=== PATIENT | female | born 1985 | race African-American/Black ===

== ENCOUNTER 2021-06-23 11:17 | Emergency (ER) | payer OTHER, MEDICARE, MEDICAID, SELFPAY ==
[2021-06-23 11:19] VITALS: BP 113/72; PULSE 108; RESP 18; TEMP 36.7; O2SAT 94; BMI 28.3
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
[2021-06-23 12:40] VITALS: BP 121/76; PULSE 98; RESP 18; TEMP 36.7; O2SAT 96
== END 2021-06-23 12:40 | disposition home or self-care (01) ==
PROVIDERS: Emergency Provider Emergency Medicine; PCP Family Medicine
DX: S30.0XXA Contusion of lower back and pelvis, initial encounter (principal); V43.62XA Car passenger injured in collision with other type car in traffic accident, initial encounter; Y92.414 Local residential or business street as the place of occurrence of the external cause
CPT/HCPCS: 99282

== ENCOUNTER → 2021-06-27 15:13 | Outpatient (CLI) | payer MEDICARE, MEDICAID, SELFPAY ==
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
== END ==
PROVIDERS: PCP Nurse Practitioner Family; Visit Provider Nurse Practitioner Family
DX: M54.41 Lumbago with sciatica, right side (principal); M25.551 Pain in right hip; V49.50XA Passenger injured in collision with unspecified motor vehicles in traffic accident, initial encounter
CPT/HCPCS: 72110; 73502

== ENCOUNTER 2021-07-22 09:30 | Outpatient (RCR) | payer OTHER, MEDICARE, MEDICAID, SELFPAY ==
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
== END 2021-07-22 09:35 | disposition home or self-care (01) ==
LOC: PT 09:30
PROVIDERS: PCP Nurse Practitioner Family; Visit Provider Nurse Practitioner Family
DX: M54.41 Lumbago with sciatica, right side (principal); M25.551 Pain in right hip
CPT/HCPCS: 97014; 97035; 97110; 97163; G0283

== ENCOUNTER → 2021-07-22 10:10 | Outpatient (CLI) | payer OTHER, SELFPAY ==
--- NOTE | 2021-07-22 10:12 | MR_ITS ---
PROCEDURE: MR LUMBAR SPINE WO CON CLINICAL INDICATION: ACUTE RIGHT SIDED LOW BACK PAIN COMPARISON: No exams were available for comparison TECHNIQUE: Standard multiplanar multiecho sequences are performed without contrast. 3-D MIP and myelographic images are also rendered and reviewed FINDINGS: There is normal alignment. The spinal cord ends at the L1-L2 level. No acute fracture or dislocation. L1-L2: Unremarkable. L2-L3: Mild facet and ligamentum hypertrophic change. L3-L4: Mild facet and ligamentum hypertrophy with small amount of fluid just lateral to the facet joint on the right.. L4-5: Generalized disc desiccation with mild circumferential bulging disc along with facet and ligamentum hypertrophic change with mild bilateral foraminal narrowing. Facet and ligamentum hypertrophy. L5-S1: Bulging disc with small broad-based central disc protrusion very slightly eccentric toward the right. Mild bilateral foraminal narrowing. Mild bilateral lateral recess narrowing. No extruded herniated disc or bony canal stenosis. There is mild lumbar scoliosis convex left. IMPRESSION: 1. Mild multilevel lumbar spondylosis. Please see above for detailed description at each level. 2. L4-5: Generalized disc desiccation with mild circumferential bulging disc along with facet and ligamentum hypertrophic change with mild bilateral foraminal narrowing. Facet and ligamentum hypertrophy. 3. L5-S1: Bulging disc with small broad-based central disc protrusion very slightly eccentric toward the right. Mild bilateral foraminal narrowing. Mild bilateral lateral recess narrowing Dictated by: Rey Tam MD 07/25/2021 09:10 Rey Tam MD in [place] 07/25/2021 09:10
== END ==
PROVIDERS: PCP Nurse Practitioner Family; Visit Provider Nurse Practitioner Family
DX: M54.41 Lumbago with sciatica, right side (principal)
CPT/HCPCS: 72148; 76376

== ENCOUNTER → 2021-08-21 15:06 | Outpatient (CLI) | payer MEDICARE, MEDICAID, SELFPAY | PROVIDERS: PCP Nurse Practitioner Family; Visit Provider Nurse Practitioner Family | DX: U07.1 COVID-19 (principal) | CPT/HCPCS: C9803; U0003; U0005 ==

== ENCOUNTER → 2021-11-15 15:59 | Outpatient (CLI) | payer MEDICARE, MEDICAID, SELFPAY | PROVIDERS: PCP Nurse Practitioner Family; Visit Provider Nurse Practitioner Family | DX: Z13.1 Encounter for screening for diabetes mellitus (principal); Z13.29 Encounter for screening for other suspected endocrine disorder; E55.9 Vitamin D deficiency, unspecified; Z13.220 Encounter for screening for lipoid disorders; Z13.0 Encounter for screening for diseases of the blood and blood-forming organs and certain disorders involving the immune mechanism ==

== ENCOUNTER → 2022-02-03 13:25 | Outpatient (CLI) | payer MEDICARE, MEDICAID, SELFPAY ==
--- NOTE | 2022-02-03 13:30 | US_ITS ---
FINAL REPORT CLINICAL HISTORY: Heavy Bleeding FINDINGS: Transvaginal sonographic images of the pelvis were obtained. The uterus measures 9.8 x 8.8 x 5.1 cm. The endometrium measures 8 mm, which is within normal limits. There are 4 uterine fibroids measuring up to 4.4 cm in greatest dimensions. The right ovary measures 3.2 cm in length and left ovary measures 3.0 cm in length. Normal blood flow seen to the ovaries. Small follicles are present. There is no evidence of free fluid. IMPRESSION: Fibroid uterus. Reviewed, Interpreted and Dictated by Phi Booth III, MD Transcribed by Nicholas Champion Authenticated and [facility]
== END ==
PROVIDERS: PCP Nurse Practitioner Family; Visit Provider Nurse Practitioner Obstetrics & Gynecology
DX: N92.0 Excessive and frequent menstruation with regular cycle (principal)
CPT/HCPCS: 76830

== ENCOUNTER 2022-12-24 14:31 | Emergency (ER) | payer MEDICARE, MEDICAID, SELFPAY ==
[2022-12-24 15:12] VITALS: BP 106/75; PULSE 115; RESP 18; TEMP 37.1; O2SAT 98; BMI 25.0
--- NOTE | 2022-12-24 15:54 | EXP.UTC ---
Discharge Plan Disposition Patient Disposition: Home, Self-Care Condition: Good Prescriptions Prescriptions: New ondansetron 4 mg tablet,disintegrating 4 mg PO Q8H PRN (Reason: nausea and vomiting) Qty: 14 0RF No Action budesonide-formoterol 160-4.5 mcg/actuation HFA aerosol inhaler INHALATION fluticasone propionate 50 mcg/actuation spray,suspension INTRANASAL albuterol sulfate [Ventolin HFA] 90 mcg/actuation HFA aerosol inhaler INHALATION mometasone 0.1 % ointment TOPICAL cyclobenzaprine 5 mg tablet 5 mg PO HS levocetirizine 5 mg tablet 5 mg PO DAILY ketorolac 10 mg tablet 10 mg PO TID PRN (Reason: pain) 5 Days Qty: 20 0RF Spiriva Respimat 1.25 mcg/actuation mist IH Label Comments: INHALE 2 SPRAY(S) BY MOUTH ONCE DAILY fluocinolone and shower cap 0.01 % oil TP spironolactone 100 mg tablet 100 mg PO DAILY tretinoin 0.025 % cream TP norgestimate-ethinyl estradiol [Sprintec (28)] 0.25-35 mg-mcg tablet 1 tab PO DAILY Qty: 28 11RF Referrals Follow up/Referrals: Amy Saez APRN [Primary Care Provider] - See instructions Activity Restrictions/Add. Instructions Additional Instructions/Restrictions: Monitor temperature. Seek treatment if fever develops. Follow-up immediately if new or worse symptoms worsen or no noticeable improvement over 48 hours. Increase fluids such as water, Gatorade, Powerade, juice or Pedialyte with limited formula/dietary in children No food is okay as long as you are drinking. Once ready to eat start bland such as bananas, rice, applesauce, toast. Contagious until no diarrhea, vomiting, fever times 48 hours without medication Avoid antidiarrheals unless told otherwise. Best to let the virus run its course. Follow-up immediately for new or worsening symptoms or no noticeable improvement over the next 48 hours. follow up with pcp on leg pain Clinical Impressions Clinical Impression: Nausea & vomiting, Diarrhea Instructions Patient Instructions: DI for Nausea -- Adult, Nausea and Vomiting-Adult, Diarrhea Discharge ED Provider: Fabienne ([facility])Brennan [facility] [place] HPI General Stated complaint: diarrhea,nausea,headache,weakness Mode of Arrival: Ambulatory Source of Information: Patient Limitations: No Limitations Time Seen by Provider: 12/24/22 15:54 Description of Symptoms (Recalled from Triage Doc. by RN): pt c/o n/v/d x2 d. pt believes she has food poisoning. pt also c/o L oden pain, tenderness, and numbness. pt was seen at [facility] on 12/19 and had a negative xray. HEENT Symptoms (Recalled from RN notes): No Resp Symptoms (Recalled from RN notes): No Skin Symptoms (Recalled from RN notes): No MS Symptoms (Recalled from RN notes): Yes Functional Status (Recalled from RN notes): wnl History of Present Illness Provider Complaint: 37yr old female c/o n/v/d x2 d. pt believes she has food poisoning from [place] in [place] on sun[place] night. pt also c/o L oden pain, tenderness, and numbness for 3-4 months. pt was seen at [facility] on 12/19 and had a negative xray. Related Data Home Medications Medication Instructions Recorded Confirmed albuterol sulfate 90 mcg/actuation inhalation 07/19/21 03/21/22 aerosol inhaler (Ventolin HFA) budesonide-formoterol HFA 160 inhalation 07/19/21 03/21/22 mcg-4.5 mcg/actuation aerosol inhaler cyclobenzaprine 5 mg tablet 5 mg PO HS 07/19/21 03/21/22 fluticasone propionate 50 g intranasal 07/19/21 03/21/22 mcg/actuation nasal spray,suspension levocetirizine 5 mg tablet 5 mg PO DAILY 07/19/21 03/21/22 mometasone 0.1 % topical ointment g topical 07/19/21 03/21/22 fluocinolone 0.01 % scalp oil and each topical 01/24/22 03/21/22 shower cap tiotropium bromide 1.25 g inhalation 01/24/22 03/21/22 mcg/actuation mist for inhalation (Spiriva Respimat) spironolactone 100 mg tablet 100 mg PO DAILY 03/21/22 03/21/22 tretinoin 0.025 % topical cream g topi
[2022-12-24 16:09] VITALS: BP 106/75; PULSE 115; RESP 18; TEMP 37.1
== END 2022-12-24 16:22 | disposition home or self-care (01) ==
PROVIDERS: Emergency Provider Nurse Practitioner Family; PCP Nurse Practitioner Family
DX: R11.2 Nausea with vomiting, unspecified (principal); R19.7 Diarrhea, unspecified; R51.9 Headache, unspecified; M79.662 Pain in left lower leg
CPT/HCPCS: 99204; 99212; 99214; G0463

== ENCOUNTER → 2023-04-04 17:06 | Outpatient (CLI) | payer BC, MEDICARE, MEDICAID, SELFPAY ==
--- NOTE | 2023-04-04 17:10 | MR_ITS ---
PROCEDURE INFORMATION: Exam: MR Cervical Spine Without Contrast Exam date and time: 04/04/2023 5:18 PM Age: 37 years old Clinical indication: Pain; Cervicalgia TECHNIQUE: Imaging protocol: Magnetic resonance imaging of the cervical spine without contrast. COMPARISON: No relevant prior studies available. FINDINGS: Bones/joints: The cervical spine is straightened which may be positional or related to spasm. The vertebral body heights are maintained. The marrow signal is normal. Spinal cord: Normal signal. No cord compression. C2-C3: No significant disc bulge or herniation. No severe spinal canal stenosis. No significant neural foraminal narrowing. C3-C4: No significant disc bulge or herniation. No severe spinal canal stenosis. No significant neural foraminal narrowing. C4-C5: No significant disc bulge or herniation. No severe spinal canal stenosis. No significant neural foraminal narrowing. C5-C6: C5-C6 subtle central focal disc protrusion is present without stenosis. C6-C7: No significant disc bulge or herniation. No severe spinal canal stenosis. No significant neural foraminal narrowing. C7-T1: No significant disc bulge or herniation. No severe spinal canal stenosis. No significant neural foraminal narrowing. Soft tissues: Unremarkable. Vasculature: Expected flow voids in the vertebral arteries. IMPRESSION: Subtle C5-C6 degenerative disc disease. No spinal canal stenosis.
--- NOTE | 2023-04-04 17:10 | MR_ITS ---
PROCEDURE INFORMATION: Exam: MR Head Without Contrast Exam date and time: 04/04/2023 5:18 PM Age: 37 years old Clinical indication: Dizziness; Additional info: Keeps losing balance TECHNIQUE: Imaging protocol: Magnetic resonance imaging of the head without contrast. COMPARISON: No relevant prior studies available. FINDINGS: Brain: No acute infarct. No hemorrhage. Unremarkable white matter for age. No edema. Cerebral ventricles: Normal. No ventriculomegaly. Bones/joints: Unremarkable. Paranasal sinuses: There is moderate mucosal thickening in the [id number]-left maxillary sinus the bilateral ethmoids in the bilateral frontal sinuses with minimal sphenoid sinus mucosal thickening. No air-fluid levels are seen. Mastoid air cells: Normal as visualized. No mastoid effusion. Orbital cavities: Unremarkable. Soft tissues: Unremarkable. IMPRESSION: 1. No acute intracranial abnormality. 2. Moderate paranasal sinus opacification without air-fluid level seen to indicate acute sinusitis. Correlate clinically.
== END ==
PROVIDERS: PCP Nurse Practitioner Family; Visit Provider Nurse Practitioner Family
DX: M54.2 Cervicalgia (principal); M54.12 Radiculopathy, cervical region; R26.89 Other abnormalities of gait and mobility
CPT/HCPCS: 70551; 72141; 76376

== ENCOUNTER → 2023-06-18 16:58 | Outpatient (CLI) | payer BC, MEDICARE, MEDICAID, SELFPAY | PROVIDERS: PCP Nurse Practitioner Family; Visit Provider Nurse Practitioner Family | DX: R05.9 Cough, unspecified (principal); R06.02 Shortness of breath; J02.9 Acute pharyngitis, unspecified; R09.89 Other specified symptoms and signs involving the circulatory and respiratory systems; R09.2 Respiratory arrest | CPT/HCPCS: 87635 ==

== ENCOUNTER 2023-12-27 09:20 | Outpatient (CLI) | payer MEDICARE, MEDICAID, SELFPAY ==
[2023-12-25 08:26] LABS: Alpha-1-Antitrypsin 150 mg/dL (100-188)
== END 2023-12-27 23:59 | disposition home or self-care (01) ==
LOC: LAB 09:21
PROVIDERS: PCP Nurse Practitioner Family; Visit Provider Nurse Practitioner Family
DX: J45.51 Severe persistent asthma with (acute) exacerbation (principal)
CPT/HCPCS: 82103

== ENCOUNTER 2024-01-03 16:34 | Outpatient (CLI) | payer MEDICARE, MEDICAID, SELFPAY ==
--- NOTE | 2024-01-03 16:38 | XR_ITS ---
PROCEDURE INFORMATION: Exam: XR Right Knee Exam date and time: 01/03/2024 4:43 PM Age: 38 years old Clinical indication: Other: Pain and swelling; Additional info: Right knee pain and swelling TECHNIQUE: Imaging protocol: Radiologic exam of the right knee. Views: 4 or more views. COMPARISON: No relevant prior studies available. FINDINGS: Bones/joints: Normal. Soft tissues: Normal. IMPRESSION: No acute findings.
== END 2024-01-03 23:59 | disposition home or self-care (01) ==
LOC: RAD 16:35
PROVIDERS: PCP Nurse Practitioner Family; Visit Provider Nurse Practitioner Family
DX: M23.51 Chronic instability of knee, right knee (principal); M25.461 Effusion, right knee
CPT/HCPCS: 73564

== ENCOUNTER 2024-01-18 06:57 | Outpatient (CLI) | payer MEDICARE, MEDICAID, SELFPAY ==
--- NOTE | 2024-01-18 07:32 | MR_ITS ---
FINAL REPORT TECHNIQUE: Multiplanar MR without contrast CLINICAL HISTORY: Right knee pain and swelling FINDINGS: Articular cartilage: No focal defect Marrow signal: Unremarkable Joint fluid: Physiologic Menisci: Normal morphology without tear Ligaments: Collateral and cruciate ligaments intact IMPRESSION: Unremarkable exam Reviewed, Interpreted and Dictated by Haile Nunez MD Transcribed by Chaparrita Jones Authenticated and [facility]
== END 2024-01-18 23:59 | disposition home or self-care (01) ==
LOC: RAD 06:58
PROVIDERS: PCP Nurse Practitioner Family; Visit Provider Nurse Practitioner Family
DX: M25.461 Effusion, right knee (principal); M23.51 Chronic instability of knee, right knee
CPT/HCPCS: 73721

== ENCOUNTER 2024-04-09 12:02 | Outpatient (CLI) | payer MEDICARE, MEDICAID, SELFPAY ==
[2024-04-09 17:43] LABS: Coronavirus 19, PCR Not Detected (NotDetected); Influenza A, PCR Not Detected (NotDetected); Influenza B, PCR Not Detected (NotDetected)
== END 2024-04-09 23:59 | disposition home or self-care (01) ==
LOC: LAB.DROPOF 04-10 12:03
PROVIDERS: PCP Nurse Practitioner Family; Visit Provider Nurse Practitioner Family
DX: R06.02 Shortness of breath (principal)
CPT/HCPCS: 87636

== ENCOUNTER 2024-09-12 16:38 | Outpatient (CLI) | payer MEDICARE, MEDICAID, SELFPAY ==
[2024-09-12 17:14] LABS: Basophils # 0.1 K/mm3 (0-0.2); Basophils % 0.9 % (0.1-2.0); Eosinophils % 11.9 % (0.1-12.0); Hematocrit 42.2 % (37.0-47.0); Hemoglobin 14.1 g/dL (12.2-16.2); Lymphocytes # 3.4 K/mm3 (0.7-4.5); Lymphocytes % 38.5 % (10-50); Mean Corpuscular HGB Conc 33.4 g/dL (31.8-35.4); Mean Corpuscular Hemoglobin 30.2 pg (27.0-31.2); Mean Corpuscular Volume 90.4 fl (81-99); Mean Platelet Volume 9.8 fl (7.4-10.4); Monocytes # 0.4 K/mm3 (0.1-1.0); Monocytes % 4.9 % (1.7-9.3); Neutrophils # 3.8 K/mm3 (1.8-7.8); Neutrophils % 43.7 % (37.0-80.0); Platelet Count 351 K/mm3 (142-424); Red Blood Count 4.67 M/mm3 (4.20-5.40); Red Cell Distribution Width 13.9 % (11.5-17.5); White Blood Count 8.7 K/mm3 (4.8-10.8)
[2024-09-12 18:17] LABS: Alanine Aminotransferase 16 U/L (12-78); Albumin Level 4.5 g/dl (3.5-5.0); Albumin/Globulin Ratio 1.7 (1.1-1.8); Alkaline Phosphatase 61 U/L (38-126); Anion Gap 11.3 mEq/L (5-15); Aspartate Amino Transferase 28 U/L (14-36); Bilirubin,Total 0.4 mg/dl (0.2-1.3); Blood Urea Nitrogen 9 mg/dl (7-17); Calcium 9.6 mg/dl (8.4-10.2); Carbon Dioxide 23 mmol/L (22.0-30.0); Chloride 105 mmol/L (98-107); Chol/HDL Ratio 1.6 (1-3.5); Cholesterol 174 mg/dl (140-200); Estimated Glomerular Filt Rate 112 ml/min (>60); GFR (African American) 135 ML/MIN (>60); Globulin 2.7 g/dL (1.3-3.2); Glucose 76 mg/dl (74-100); HDL Cholesterol 107 mg/dl (40-60); Potassium 4.3 mmoL/L (3.5-5.1); Sodium 135 mmol/L (136-145); Total Protein,Serum 7.2 g/dl (6.3-8.2); Triglycerides 53 mg/dl (30-150); VLDL Cholesterol 11 mg/dL (0-40)
[2024-09-12 18:50] LABS: Thyroid Stimulating Hormone 0.03 uIU/mL (0.465-4.68)
[2024-09-12 19:09] LABS: Vitamin B12 649 pg/mL (239-931)
[2024-09-12 20:23] LABS: Ferritin 12.4 ng/ml (6.24-137)
[2024-09-15 17:34] LABS: Free T4 (Free Thyroxine) 0.91 ng/dl (0.78-2.19)
[2024-09-15 17:35] LABS: T4 (Thyroxine) 8.2 ug/dl (5.53-11.0)
[2024-09-16 08:13] LABS: Thyroid Peroxidase Antibodies 17 IU/mL (0-34); Triiodothyronine (T3) Free 2.8 pg/mL (2.0-4.4)
[2024-09-17 09:22] LABS: Thyroglobulin Level <1.0 IU/mL (0.0-0.9)
== END 2024-09-12 23:59 | disposition home or self-care (01) ==
LOC: LAB 16:39
PROVIDERS: PCP Nurse Practitioner Family; Visit Provider Nurse Practitioner Family
DX: R53.83 Other fatigue (principal); Z13.220 Encounter for screening for lipoid disorders; R79.89 Other specified abnormal findings of blood chemistry; J45.51 Severe persistent asthma with (acute) exacerbation; Z79.899 Other long term (current) drug therapy; R94.6 Abnormal results of thyroid function studies
CPT/HCPCS: 36415; 80053; 80061; 82306; 82607; 82728; 83036; 84436; 84439; 84443; 84481; 85025; 86376; 86800

== ENCOUNTER 2024-10-17 14:05 | Outpatient (CLI) | payer MEDICARE, MEDICAID, SELFPAY ==
[2024-10-17 13:56] LABS: Coronavirus 19, PCR Not Detected (NotDetected); Human Rhinovirus Not Detected (NotDetected); Influenza A, PCR Not Detected (NotDetected); Influenza B, PCR Not Detected (NotDetected); Respiratory Syncytial Virus Not Detected (NotDetected)
[2024-10-17 14:16] LABS: Basophils # 0.1 K/mm3 (0-0.2); Basophils % 1.4 % (0.1-2.0); Eosinophils # 1.5 K/mm3 (0.0-0.4); Eosinophils % 23.8 % (0.1-12.0); Hematocrit 41.3 % (37.0-47.0); Hemoglobin 13.5 g/dL (12.2-16.2); Lymphocytes # 2.3 K/mm3 (0.7-4.5); Lymphocytes % 35.6 % (10-50); Mean Corpuscular HGB Conc 32.7 g/dL (31.8-35.4); Mean Corpuscular Hemoglobin 30.3 pg (27.0-31.2); Mean Corpuscular Volume 92.6 fl (81-99); Mean Platelet Volume 9.9 fl (7.4-10.4); Monocytes # 0.4 K/mm3 (0.1-1.0); Monocytes % 6.3 % (1.7-9.3); Neutrophils # 2.1 K/mm3 (1.8-7.8); Neutrophils % 32.7 % (37.0-80.0); Platelet Count 379 K/mm3 (142-424); Red Blood Count 4.46 M/mm3 (4.20-5.40); Red Cell Distribution Width 14.5 % (11.5-17.5); White Blood Count 6.4 K/mm3 (4.8-10.8)
[2024-10-17 17:06] LABS: Ferritin 22.7 ng/ml (6.24-137)
== END 2024-10-17 23:59 | disposition home or self-care (01) ==
LOC: LAB.DROPOF 14:05
PROVIDERS: PCP Nurse Practitioner Family; Visit Provider Nurse Practitioner Family
DX: R05.1 Acute cough (principal); J01.00 Acute maxillary sinusitis, unspecified; J45.50 Severe persistent asthma, uncomplicated; D50.9 Iron deficiency anemia, unspecified
CPT/HCPCS: 82728; 85025; 87631

== ENCOUNTER 2024-12-05 08:30 | Outpatient (CLI) | payer MEDICARE, MEDICAID, SELFPAY ==
--- NOTE | 2024-12-05 08:30 | MR_ITS ---
FINAL REPORT CLINICAL HISTORY: Dizziness, headaches, blurred vision left eye COMPARISON: None FINDINGS: Multiple projection images of the brain arterial vasculature were obtained without contrast. Raw data images were also reviewed. The internal carotid arteries are patent. The middle cerebral arteries and visualized proximal branches are patent. There is mild irregularity of distal MCA branches bilaterally, that likely represent artifact secondary to motion. The anterior cerebral arteries are patent. The intracranial vertebral arteries are patent. The basilar artery is patent. The posterior cerebral arteries are patent. IMPRESSION: No major vessel occlusion. Mild irregularity of the distal MCA branches bilaterally, that likely represents artifact secondary to motion. Reviewed, Interpreted and Dictated by Slade Tovar MD Transcribed by Cara Capellan Authenticated and [facility]
--- OUTSIDE RECORDS SUMMARY | 2024-12-05 08:32 | XMS_ITS | Clinical Summary ---
Author Organization [facility] Address [address] [place] [address] Phone Care Team Providers Care Mechatronics Technologist Name Role Phone Elana Saez Unavailable [phone] Philip ODOM, Frank Unavailable Unavailable Reason for Visit and Chief Complaint The Chief Complaint is: lower back pain Problems Includes: Problems addressed during this encounter and other active Problems Current Visit Onset Date Resolved Date Provider Kyleo n Status Lower Back Pain 09/13/2021 LINDY LIVINGSTON PA-C Active Last Documented On 2 2:22PM ; [facility] Past Visits Onset Date Resolved Date Provider Condition Status Neck Pain 05/17/2023 Jamaal Osorio MD Active Last Documented On 3 10:29AM ; [facility] Plan of Treatment At this point we will just have her do some chiropractic or physical therapy treatments for a while. Follow-up in a few months see how she responds. She is not bad enough to pursue any surgical treatment at this time. We will just have to reevaluate over time see how she does. - Last Documented On 02/07/2022 3:24PM ; [facility] Instructions to patient Lose weight Last Documented On 2 3:06PM ; [facility] Assessments Includes: Assessments from this encounter Findings Lumbar disc degeneration L4-5 L5-S1 with facet arthropathy. - Last Documented On 02/07/2022 3:24PM ; [facility] Sacroiliitis - Last Documented On 02/07/2022 3:24PM ; [facility] Instructions Includes: Instructions from this encounter Instructions to patient Lose weight Last Documented On 2 3:06PM ; [facility], [facility] Medical Equipment - Implanted Devices Includes: Current Devices No Medical Equipment Recorded Medications Includes: Medications discussed during this encounter and other current Medications Current Medications (continue as prescribed) Pregabalin 50 MG Oral Capsule 05/09/2023 Provider: DORIS SAEZ Diagnosis: Last Documented On 3 11:41AM By Fatou King ; [facility] traMADol HCl 50 MG Oral Tablet 04/27/2023 Provider: DORIS SAEZ Diagnosis: Last Documented On 3 11:41AM By Fatou King ; [facility], [facility] Doxycycline Hyclate 100 MG Oral Capsule 04/25/2023 P rovider: DORIS SAEZ Diagnosis: Last Documented On 3 11:41AM By Fatou King ; [facility] Symbicort 160-4.5 MCG/ACT Inhalation Aerosol 3 Provider: Kandi Busch NP Diagnosis: Last Documented On 3 11:40AM By Fatou King ; [facility] Albuterol Sulfate HFA 108 (9 0 Base) MCG/ACT Inhalation Aerosol Solution 04/06/2023 Provider: Diagnosis: Last Documented On 3 11:41AM By Fatou King ; [facility], [facility] Cyclobenzaprine HCl 10 MG Oral Tablet 03/13/2023 Pro vider: DORIS SAEZ Diagnosis: Last Documented On 3 11:41AM By Fatou King ; [facility], [facility] Medications Administered Includes: Administered Medications from this encounter No Administered Medications Recorded Vital Signs Includes: Vital Signs from this encounter Vital Name 02/07/2022 03:10P Blood Pressure Sitting (mmHg) 137/83 Pulse Rate-Sitting (bpm) 94 Height (in) 64 Weight (lb) 154.2 Body Mass Index (kg/m2) 26.5 Body Surface Area (m2) 1.8 Note: rd Last Documented: On 02/07/2022 3:11PM ; [facility], [facility] Results Includes: Results discussed during this encounter No Results Recorded For Specified Dates History of Present Illness Includes: History of Present Illness from this encounter JIMBO Davenport is a 36 year old female. - Allergy list reviewed - Problem list reviewed - Medication reconciliation performed - Medication list reviewed - Yes, previous treatment. - History of Injections 09/20/2021-[facility] SI joint inj 11/25/2021 Bilat L4-5 L5-S1 Facet MBB Patient returns for follow-up on her lower back pain. Patient elected not to do the epidural injection as the steroid injections that she is already head has caused her some issues with her menstrual cycle. Patient still dealing with pain across the lumbosacral area and in the SI regions. Facet medial branch blocks did not do anything for. She did get some benefit out of the SI injections. But not significantly. She was found to have a disc degeneration with disc bulging at the L4-5 and 5 1. Epidural injection was offered. She elected not to pursue. Social History Description Last Updated Not a current smoker. 05/17/2023 Last Documented On 2 3:06PM ; [facility] Not using alcohol 05/17/2023 Last Documented On 2 3:06PM ; [facility] Not using drugs 05/17/2023 Last Documented On 2 3:06PM ; [facility] Recent change in diet No pork 05/17/2023 Last Documented On 2 3:06PM ; [facility] No caffeine use 10/04/2021 Last Documented On 2 3:06PM ; [facility] Non-smoker 09/13/2021 Last Documented On 2 3:06PM ; [facility] Not exercising regularly 09/13/2021 Last Documented On 2 3:06PM ; [facility] Smoking Status Unknown Procedures and Surgical History Includes: Procedures from this encounter Procedures Code Diagnosis Performing Provider Service L ocation Service Date use of tobacco assessment performed 1000F Last Documented On 2 3:06PM ; [facility] no influenza immunization contraindicate d Last Documented On 2 3:11PM ; [facility] an X-ray was performed [id number] Last Documented On 2 3:07PM ; [facility] an MRI was performed 07/2021 [id number] Last Documented On 2 3:07PM ; [facility] Medical History Includes: Medical History addressed during this encounter Description Last Updated No recent immunization for flu 2 Last Documented On 2 3:06PM ; [facility] No recent immunization for pneumococcal pneumonia 10/04/2021 Last Documented On 2 3:06PM ; [facility] History of Anemia 09/13/2021 Last Documented On 2 3:06PM ; [facility] History of asthma 09/13/2021 Last Documented On 2 3:06PM ; [facility] Past Surgical History: Tubal 09/13/2021 Last Documented On 2 3:06PM ; [facility] Family History Includes: Family History addressed during this encounter Description Last Updated Diabetes mellitus 09/13/2021 Last Documented On 2 3:06PM ; [facility] Family history of cancer 09/13/2021 Last Documented On 2 3:06PM ; [facility] Stroke / Seizures 09/13/2021 Last Documented On 2 3:06PM ; [facility] Review of Systems Includes: Review of Systems from this encounter Systemic: Not feeling tired, no recent weight loss, and no recent weight gain. Head: No headache. Sinus pain. Eyes: No vision problems and no Cataracts. Glasses/Contacts. No Glaucoma. Otolaryngeal: No hearing loss and no tinnitus. Cardiovascular: No chest pain or discomfort, no palpitations, no Hypertension, and no High Cholesterol. Pulmonary: Daytime asthma symptoms. No chronic cough. No wheezing. Gastrointestinal: Heartburn. No abdominal pain. No Indigestion, no Acid Reflux, no Peptic Ulcer, no GI Stomach Bleed, and no Ulcers. Endocrine: No hot flashes, no muscle weakness, no Diabetes, no Hypothyroid, and no Hyperthyroid. Hematologic: No easy bleeding. A tendency for easy bruising and Anemia. Musculoskeletal: No Arthritis. Lower back pain. No soft tissue swelling and no localized joint pain. Neurological: No dizziness, no convulsions, and no numbness. Psychological: No anxiety, no emotional lability, no depression, and no insomnia. Not crying for no reason. Skin: No dry skin. No Ulcers and no Scars. Rash: Allergic and Immunologic: Complaint of seasonal allergic reaction. reviewed 02/07/2022 Mental Status Includes: Mental Status from this encounter Description No anxiety Functional Status Includes: Functional Status from this encounter No Functional Status Recorded Physical Exam Includes: Physical Exam from this encounter Allergies Includes: Active Allergies Substance Type Reaction Onset Date Resolved Date Statu s Amoxicillin Allergy 09/13/2021 Active Last Documented On 3 10:29AM ; [facility] Encounters Encounter Provider Location Date Check-In Time Check- Out Time Diagnosis Follow Up LINDY LIVINGSTON PA-C [facility] 2 2:55PM 3:23PM Insurance Includes: Active Insurance Policies Plan Name Member ID Group # Subscriber Relationship Effect gustavo Dates 1 - [facility] [id number] Renee Gross Self 08/20/2022 - Unknown Clinical Notes Includes: Clinical Notes from this encounter No Clinical Notes Recorded
--- OUTSIDE RECORDS SUMMARY | 2024-12-05 08:32 | XMS_ITS | Clinical Summary ---
Author Organization [facility] , [facility] Address [address] [place] [address] Phone Care Team Providers Care Flavoring Oil Filterer Name Role Phone Elana Saez Unavailable [phone] Philip ODOM, Frank Unavailable Unavailable Reason for Visit and Chief Complaint The Chief Complaint is: neck pain Problems Includes: Problems addressed during this encounter and other active Problems Current Visit Onset Date Resolved Date Provider Elijah siegel Status Neck Pain 05/17/2023 Jamaal Osorio MD Active Last Documented On 3 10:29AM ; [facility] Lower Back Pain 09/13/2021 LINDY LIVINGSTON PA-C Active Last Documented On 2 2:22PM ; [facility] Plan of Treatment Patient was seen by myself and Dr. Devon Rojas PA-C. Patient will follow up with us as needed were to refer her to neurology for a more formal neurology work-up do not feel this is anything that needs neck surgery at this point in time. We do encourage her to continue work on exercises for posture and gave her a brochure with those exercises - Last Documented On 11/02/2023 12:38PM ; [facility] Referrals To Diagnosis Consult with Neurologist Note: Refer to Neurology Last Documented On 4 10:04AM ; [facility] Assessments Includes: Assessments from this encounter Findings Neck pain and left arm radiculopathy - Last Documented On 11/02/2023 12:38PM ; [facility], [facility] Medical Equipment - Implanted Devices Includes: Current Devices No Medical Equipment Recorded Medications Includes: Medications discussed during this encounter and other current Medications Discontinued / Stopped on this date on 01/24/2022 Sprintec 28 0.25-35 MG-MCG Oral Tablet Pr ovider: Diagnosis: Last Documented On 3 11:38AM By Fatou King ; [facility], [facility] Benzoyl Peroxide 10% External Foam Provid er: Diagnosis: Last Documented On 3 11:38AM By Fatou King ; [facility], [facility] Symbicort 160-4.5 MCG/ACT Inhalation Aerosol Provider: Diagnosis: Last Documented On 3 11:38AM By Fatou King ; [facility], [facility] Fluticasone Propionate 50 MCG/ACT Nasal Suspension Provider: Diagnosis: Last Documented On 3 11:38AM By Fatou King ; [facility], [facility] Ventolin HFA 108 (90 Base) MCG/ACT Inhalation Aerosol Solution Provider: Diagnosis: Last Documented On 3 11:37AM By Fatou King ; [facility], [facility] DermaZinc Scalp External Liquid Provider: Diagnosis: Last Documented On 3 11:38AM By Fatou King ; [facility], [facility] Ketoconazole 2% External Shampoo Provider : Diagnosis: Last Documented On 3 11:38AM By Fatou King ; [facility], [facility] Clindamycin Phosphate 1% External Gel Pro vider: Diagnosis: Last Documented On 3 11:38AM By Fatou King ; [facility], [facility] LidoPure Patch 5% External Kit Provider: Diagnosis: Last Documented On 3 11:38AM By Fatou King ; [facility], [facility] Tretinoin 0.025% External Gel Provider: Diagnosis: Last Documented On 3 11:38AM By Fatou King ; [facility], [facility] Budesonide-Formoterol Fumara te 160-4.5 MCG/ACT Inhalation Aerosol Provider: DORIS SAEZ Diagnosis: Last Documented On 3 11:37AM By Fatou Kign ; [facility], [facility] Spiriva Respimat 1.25 MCG/AC T Inhalation Aerosol Solution Provider: DORIS SAEZ Diagnosis: Last Documented On 3 11:37AM By Fatou King ; [facility], [facility] Current Medications (continue as prescribed) Pregabalin 50 MG Oral Capsule 05/09/2023 Provider: DORIS SAEZ Diagnosis: Last Documented On 3 11:41AM By Fatou King ; [facility], [facility] traMADol HCl 50 MG Oral Tablet 04/27/2023 Provider: DORIS SAEZ Diagnosis: Last Documented On 3 11:41AM By Fatou King ; [facility], [facility] Doxycycline Hyclate 100 MG Oral Capsule 04/25/2023 P rovider: DORISCELINE SAEZ Diagnosis: Last Documented On 3 11:41AM By Fatou King ; [facility], [facility] Symbicort 160-4.5 MCG/ACT Inhalation Aerosol 3 Provider: Kandi Busch NP Diagnosis: Last Documented On 3 11:40AM By Fatou King ; [facility], [facility] Albuterol Sulfate HFA 108 (9 0 Base) MCG/ACT Inhalation Aerosol Solution 04/06/2023 Provider: Diagnosis: Last Documented On 3 11:41AM By Fatou King ; [facility], [facility] Cyclobenzaprine HCl 10 MG Oral Tablet 03/13/2023 Pro vider: DORIS LAWRENCENER Diagnosis: Last Documented On 3 11:41AM By Fatou King ; [facility], [facility] Medications Administered Includes: Administered Medications from this encounter No Administered Medications Recorded Vital Signs Includes: Vital Signs from this encounter Vital Name 05/17/2023 10:37A Height (in) 64 Weight (lb) 136 Body Mass Index 23.3 Body Surface Area 1.7 Note: lc Last Documented: On 05/17/2023 10:37A M ; [facility], [facility] Results Includes: Results discussed during this encounter No Results Recorded For Specified Dates History of Present Illness Includes: History of Present Illness from this encounter JIMBO Davenport is a 37 year old female. - Symptoms Popping and grinding Hot and cold pack makes symptos better. Sitting and standing for more than 15 minutes makes symptoms worse. - Allergy list reviewed - Problem list reviewed - Medication list reviewed - Previous history of new onset pain 06/2021 Automotive Injury - Sharp pain Symptoms - Stabbing - Pain is constant (100% of the time) - Pain is throbbing - Pain is dull, aching - Patient pain level from 1-10: 9 - Yes, previous treatment. PCP - History of Physical Therapy - History of Injections Medications used for this condition: Patient is here today complaints of neck pain and left arm pain that radiates down the left arm makes her whole arm go numb she has been dealing with this for 3 months she is done physical therapy with it which has not helped. She has a job where she has to do a lot of looking down a lot. She is also has a left eye problem which she states she sees a retinal specialist with it which they said could possibly cause her to go blind. She describes no balance problems no bowel or bladder issues with this. She has also had a brain MRI. Social History Description Last Updated Tobacco non-user 05/17/2023 Last Documented On 4 12:38PM ; [facility], [facility] Not a current smoker. 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 Last Documented On 4 12:38PM ; [facility] No caffeine use 10/04/2021 Last Documented On 3 10:29AM ; [facility], [facility] Not exercising regularly 09/13/2021 Last Documented On 3 10:29AM ; [facility], [facility] Smoking Status Unknown Procedures and Surgical History Includes: Procedures from this encounter Procedures Code Diagnosis Performing Provider Service L ocation Service Date use of tobacco assessment performed 1000F Last Documented On 3 10:29AM ; [facility], [facility] review of medications documented 1160F Last Documented On 3 10:29AM ; [facility], [facility] an X-ray was performed 06/27/2021-[facility] @ [facility] [id number] Last Documented On 3 10:34AM ; [facility] an MRI was performed 07/22/2021-[facility] @ [facility] [id number] Last Documented On 3 10:34AM ; [facility] Surgical History Last Updated Past Surgical History: Tubal 2007 2022 Last Documented On 4 12:38PM ; [facility] Medical History Includes: Medical History addressed during this encounter Description Last Updated No recent immunization for flu 2 Last Documented On 3 10:29AM ; [facility] No recent immunization for pneumococcal pneumonia 10/04/2021 Last Documented On 3 10:29AM ; [facility] History of Anemia 09/13/2021 Last Documented On 3 10:29AM ; [facility] History of asthma 09/13/2021 Last Documented On 3 10:29AM ; [facility] Family History Includes: Family History addressed during this encounter Description Last Updated Family history of heart disease 05/17/20 Last Documented On 4 12:38PM ; [facility] Family history of rheumatoid arthritis 0 05/17/2023 Last Documented On 4 12:38PM ; [facility] Family history of thromboembolic disease 05/17/2023 Last Documented On 4 12:38PM ; [facility] Diabetes mellitus 09/13/2021 Last Documented On 3 10:29AM ; [facility] Family history of cancer 09/13/2021 Last Documented On 3 10:29AM ; [facility] Stroke / Seizures 09/13/2021 Last Documented On 3 10:29AM ; [facility] Review of Systems Includes: Review of Systems from this encounter Systemic: Not feeling tired, no recent weight loss, and no recent weight gain. Head: No headache. Sinus pain. Eyes: Vision problems. No Cataracts. Glasses/Contacts. No Glaucoma. Otolaryngeal: No hearing loss and no tinnitus. Cardiovascular: No chest pain or discomfort, no palpitations, no Hypertension, and no High Cholesterol. Pulmonary: Daytime asthma symptoms. No chronic cough. No wheezing. Gastrointestinal: No heartburn and no abdominal pain. No Indigestion, no Acid Reflux, no Peptic Ulcer, no GI Stomach Bleed, and no Ulcers. Endocrine: No hot flashes, no muscle weakness, no Diabetes, no Hypothyroid, and no Hyperthyroid. Hematologic: No easy bleeding. A tendency for easy bruising. No Anemia. Musculoskeletal: Arthritis and lower back pain. No soft tissue swelling and no localized joint pain. Neurological: Dizziness. No convulsions. Numbness. Psychological: No anxiety, no emotional lability, no depression, and no insomnia. Not crying for no reason. Skin: No dry skin. No Ulcers, no Scars, and no rash. Allergic and Immunologic: Complaint of seasonal allergic reaction. Mental Status Includes: Mental Status from this encounter Description No anxiety Functional Status Includes: Functional Status from this encounter No Functional Status Recorded Physical Exam Includes: Physical Exam from this encounter Allergies Includes: Active Allergies Substance Type Reaction Onset Date Resolved Date Statu s Amoxicillin Allergy 09/13/2021 Active Last Documented On 3 10:29AM ; [facility] Encounters Encounter Provider Location Date Check-In Time Check-Out Time Diagnosis Non Physician Specified Jamaal Osorio MD [facility] 05/17/20 23 10:26AM 11:15AM Insurance Includes: Active Insurance Policies Plan Name Member ID Group # Subscriber Relationship Effect gustavo Dates 1 - [facility] [id number] Renee Davenport Self 08/20/2022 - Unknown Clinical Notes Includes: Clinical Notes from this encounter * Progress note Date Encounter Last Documented by 05/17/2023 Non Physician Specified Last doc umented on 11/02/2023; 12:38 PM, Jamaal Osorio MD; [facility] Active Problems & Conditions - Lower Back Pain - Neck Pain Chief Complaint The Chief Complaint is: Neck pain. Referred Here Referred by PCP and referred by Primary Care Provider. History of Present Illness Renee Davenport is a 37 year old female. - Symptoms Popping and grinding Hot and cold pack makes symptos better. Sitting and standing for more than 15 minutes makes symptoms worse. - Allergy list reviewed - Problem list reviewed - Medication list reviewed - Previous history of new onset pain 06/2021 Automotive Injury - Sharp pain Symptoms - Stabbing - Pain is constant (100% of the time) - Pain is throbbing - Pain is dull, aching - Patient pain level from 1-10: 9 - Yes, previous treatment. PCP - History of Physical Therapy - History of Injections Medications used for this condition: Patient is here today complaints of neck pain and left arm pain that radiates down the left arm makes her whole arm go numb she has been dealing with this for 3 months she is done physical therapy with it which has not helped. She has a job where she has to do a lot of looking down a lot. She is also has a left eye problem which she states she sees a retinal specialist with it which they said could possibly cause her to go blind. She describes no balance problems no bowel or bladder issues with this. She has also had a brain MRI. Current Medication - Albuterol Sulfate HFA 108 (90 Base) MCG/ACT Inhalation Aerosol Solution Aerosol, solution 17 days, 0 refills - Cyclobenzaprine HCl 10 MG Oral Tablet 30 days, 0 refills - Doxycycline Hyclate 100 MG Oral Capsule Capsule, conventional 10 days, 0 refills - Pregabalin 50 MG Oral Capsule Capsule, conventional 30 days, 0 refills - Symbicort 160-4.5 MCG/ACT Inhalation Aerosol 30 days, 0 refills - traMADol HCl 50 MG Oral Tablet 7 days, 0 refills Past Medical/Surgical History Reported: Immunization History: No recent immunization for flu and not for pneumococcal pneumonia. Diagnoses: Asthma Anemia Surgical: - Past Surgical History: Tubal 2007 Social History Not a current smoker. Current diet: No recent change in diet No pork. Caffeine use: No caffeine use. Tobacco use: Tobacco non-user. Alcohol: Alcohol use. Drug Use: Not using drugs. Habits: Not exercising regularly. Work: Working time buyer. Allergies - Amoxicillin Family History Cancer Heart disease Stroke / Seizures Diabetes mellitus Thromboembolic disease Rheumatoid arthritis Review Of Systems Systemic: Not feeling tired, no recent weight loss, and no recent weight gain. Head: No headache. Sinus pain. Eyes: Vision problems. No Cataracts. Glasses/Contacts. No Glaucoma. Otolaryngeal: No hearing loss and no tinnitus. Cardiovascular: No chest pain or discomfort, no palpitations, no Hypertension, and no High Cholesterol. Pulmonary: Daytime asthma symptoms. No chronic cough. No wheezing. Gastrointestinal: No heartburn and no abdominal pain. No Indigestion, no Acid Reflux, no Peptic Ulcer, no GI Stomach Bleed, and no Ulcers. Endocrine: No hot flashes, no muscle weakness, no Diabetes, no Hypothyroid, and no Hyperthyroid. Hematologic: No easy bleeding. A tendency for easy bruising. No Anemia. Musculoskeletal: Arthritis and lower back pain. No soft tissue swelling and no localized joint pain. Neurological: Dizziness. No convulsions. Numbness. Psychological: No anxiety, no emotional lability, no depression, and no insomnia. Not crying for no reason. Skin: No dry skin. No Ulcers, no Scars, and no rash. Allergic and Immunologic: Complaint of seasonal allergic reaction. Physical Findings - Vitals taken 05/17/2023 10:37 am lc Height 64 in Weight 136 lbs Body Mass Index 23.3 kg/m2 Body Surface Area 1.7 m2 Cervical range of motion was full she had some tenderness to palpation in both bilateral upper trapezius She has 5 out of 5 biceps triceps deltoids wrist extension and flexion strength and no long track findings Tests MRI of the cervical spine showed no disc herniations or stenosis Assessment Neck pain and left arm radiculopathy Previous Tests Imaging: X-Ray: An X-ray was performed 06/27/2021-[facility] @ [facility]. MRI Scan: An MRI was performed 07/22/2021-MRI [facility]Spine @ [facility]. Available previous imaging studies were reviewed Available previous history reviewed Plan StartCited - Other Referral/Neurologist: Consult with Neurologist Instructions: Refer to Neurology EndCited Patient was seen by myself and Dr. Devon Rojas PA-C. Patient will follow up with us as needed were to refer her to neurology for a more formal neurology work-up do not feel this is anything that needs neck surgery at this point in time. We do encourage her to continue work on exercises for posture and gave her a brochure with those exercises Notes This dictation was done with voice recognition software and may contain errors and omissions. Practice Management Use of tobacco assessment performed Review of medications documented. Care Team - Elana Saez Health Reminders - Assess BMI satisfied 05/17/2023. - Assess Tobacco Use satisfied 05/17/2023.
--- OUTSIDE RECORDS SUMMARY | 2024-12-05 08:33 | XMS_ITS ---
Author Organization [facility] , [facility] Address [address] [place] [address] Phone Care Team Providers Care Leather Belt Shaper Name Role Phone Elana Saez Unavailable [phone] Frank Palacios MD Unavailable Unavailable Reason for Referral Date Encounter Description Provider Reason for Referral 09/13/21 Non Physician Specified LINDY Dickson Referral To Physician Problems Includes: Active, inactive, and resolved Problems All Visits Onset Date Resolved Date Provider Condition S tatus Neck Pain 05/17/2023 Jamaal Osorio MD Active Last Documented On 3 10:29AM ; [facility] Lower Back Pain 09/13/2021 LINDY LIVINGSTON PA-C Active Last Documented On 2 2:22PM ; [facility], [facility] Plan of Treatment Referrals To Diagnosis Consult with Neurologist Note: Refer to Neurology Last Documented On 4 10:04AM ; [facility] Instructions to patient No intervention and counseli ng on cessation of tobacco use Last Documented On 2 10:23AM ; [facility] Lose weight Last Documented On 2 10:22AM ; [facility] Lose weight Last Documented On 2 3:06PM ; [facility] Lose weight Last Documented On 2 9:14AM ; [facility] Lose weight Last Documented On 2 11:33AM ; [facility] Lose weight Last Documented On 2 2:23PM ; [facility] Assessments Includes: Assessments for all patient encounters No Assessments Recorded Instructions Includes: Instructions for all patient encounters Instructions to patient No intervention and counseli ng on cessation of tobacco use Last Documented On 2 10:23AM ; [facility] Lose weight Last Documented On 2 10:22AM ; [facility] Lose weight Last Documented On 2 3:06PM ; [facility] Lose weight Last Documented On 2 9:14AM ; [facility] Lose weight Last Documented On 2 11:33AM ; [facility] Lose weight Last Documented On 2 2:23PM ; [facility], [facility] Medical Equipment - Implanted Devices Includes: Current and historical Devices No Medical Equipment Recorded Medications Includes: Current and historical Medications Current Medications (continue as prescribed) Pregabalin 50 MG Oral Capsule 05/09/2023 Provider: DORIS SAEZ Diagnosis: Last Documented On 3 11:41AM By Fatou King ; [facility], [facility] traMADol HCl 50 MG Oral Tablet 04/27/2023 Provider: DORIS SAEZ Diagnosis: Last Documented On 3 11:41AM By Fatou King ; [facility], [facility] Doxycycline Hyclate 100 MG Oral Capsule 04/25/2023 Pili main: DORIS SAEZ Diagnosis: Last Documented On 3 11:41AM By Fatou King ; [facility], [facility] Symbicort 160-4.5 MCG/ACT Inhalation Aerosol 3 Provider: Kandi Busch NP Diagnosis: Last Documented On 3 11:40AM By Fatou King ; [facility], [facility] Albuterol Sulfate HFA 108 (9 0 Base) MCG/ACT Inhalation Aerosol Solution 04/06/2023 Provider: Diagnosis: Last Documented On 3 11:41AM By Fatou King ; [facility], [facility] Cyclobenzaprine HCl 10 MG Oral Tablet 03/13/2023 Pro vider: DORIS SAEZ Diagnosis: Last Documented On 3 11:41AM By Fatou King ; [facility], [facility] Past Medications on file Sprintec 28 0.25-35 MG-MCG Oral Tablet 01/24/2022 - Provider: Diagnosis: Last Documented On 3 11:38AM By Fatou King ; [facility], [facility] Benzoyl Peroxide 10% External Foam 09/13/2021 - 2022 Provider: Diagnosis: Last Documented On 3 11:38AM By Fatou King ; [facility], [facility] Symbicort 160-4.5 MCG/ACT Inhalation Aerosol 2 - 05/17/2023 Provider: Diagnosis: Last Documented On 3 11:38AM By Fatou King ; [facility], [facility] Fluticasone Propionate 50 MC G/ACT Nasal Suspension 09/13/2021 - 05/17/2023 Provider: Diagnosis: Last Documented On 3 11:38AM By Fatou King ; [facility], [facility] Ventolin HFA 108 (90 Base) M CG/ACT Inhalation Aerosol Solution 09/13/2021 - 05/17/2023 Provider: Diagnosis: Last Documented On 3 11:37AM By Fatou King ; [facility], [facility] DermaZinc Scalp External Liquid 09/13/2021 - Provider: Diagnosis: Last Documented On 3 11:38AM By Fatou King ; [facility], [facility] Ketoconazole 2% External Shampoo 09/13/2021 - 05/17/20 23 Provider: Diagnosis: Last Documented On 3 11:38AM By Fatou King ; [facility], [facility] Clindamycin Phosphate 1% External Gel 09/13/2021 - Provider: Diagnosis: Last Documented On 3 11:38AM By Fatou King ; [facility], [facility] LidoPure Patch 5% External Kit 09/13/2021 - 05/17/2023 Provider: Diagnosis: Last Documented On 3 11:38AM By Fatou King ; [facility], [facility] Tretinoin 0.025% External Gel 09/13/2021 - 05/17/2023 Provider: Diagnosis: Last Documented On 3 11:38AM By Fatou King ; [facility], [facility] Budesonide-Formoterol Fumara te 160-4.5 MCG/ACT Inhalation Aerosol 09/06/2021 - 05/17/2023 Provider: Rashawn SAEZ Diagnosis: Last Documented On 3 11:37AM By Fatou King ; [facility], [facility] Spiriva Respimat 1.25 MCG/AC T Inhalation Aerosol Solution 09/05/2021 - 05/17/2023 Provider: DORIS LÓPEZ Diagnosis: Last Documented On 3 11:37AM By Fatou King ; [facility], [facility] Medications Administered Includes: Administered Medications in patient's chart No Administered Medications Recorded Results Includes: Results from 12/06/2023 through 12/05/2024 No Results Recorded For Specified Dates History of Present Illness History of Present Illness not supported for this document type No History of Present Illness Recorded Social History Description Last Updated Tobacco non-user 05/17/2023 Last Documented On 4 12:38PM ; [facility], [facility] Not a current smoker. 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 Last Documented On 4 12:38PM ; [facility] No tobacco use 04/12/2022 Last Documented On 2 10:45AM ; [facility] No caffeine use 10/04/2021 Last Documented On 2 11:47AM ; [facility] Non-smoker 09/13/2021 Last Documented On 2 3:45PM ; [facility] Not exercising regularly 09/13/2021 Last Documented On 2 3:45PM ; [facility], [facility] Smoking Status Unknown Procedures and Surgical History Surgical History Last Updated Past Surgical History: Tubal 2007 2022 Last Documented On 4 12:38PM ; [facility] Medical History Includes: Medical History in patient's chart Description Last Updated No recent immunization for flu 2 Last Documented On 2 11:47AM ; [facility] No recent immunization for pneumococcal pneumonia 10/04/2021 Last Documented On 2 11:47AM ; [facility] History of Anemia 09/13/2021 Last Documented On 2 3:45PM ; [facility] History of asthma 09/13/2021 Last Documented On 2 3:45PM ; [facility], [facility] Past Surgical History: Tubal 09/13/2021 Last Documented On 2 3:45PM ; [facility], [facility] Family History Includes: Family History in patient's chart Description Last Updated Family history of heart disease 05/17/20 23 Last Documented On 4 12:38PM ; [facility] Family history of rheumatoid arthritis 0 05/17/2023 Last Documented On 4 12:38PM ; [facility] Family history of thromboembolic disease 05/17/2023 Last Documented On 4 12:38PM ; [facility] Diabetes mellitus 09/13/2021 Last Documented On 2 3:45PM ; [facility] Family history of cancer 09/13/2021 Last Documented On 2 3:45PM ; [facility] Stroke / Seizures 09/13/2021 Last Documented On 2 3:45PM ; [facility] Review of Systems Review of Systems not supported for this document type No Review of Systems Recorded Mental Status Description No anxiety Functional Status No Functional Status Recorded Physical Exam Physical Exam not supported for this document type No Physical Exam Recorded Allergies Includes: Active, inactive, and resolved Allergies Substance Type Reaction Onset Date Resolved Date Statu s Amoxicillin Allergy 09/13/2021 Active Last Documented On 3 10:29AM ; [facility], [facility] Insurance Includes: Active Insurance Policies Plan Name Member ID Group # Subscriber Relationship Effect gustavo Dates 1 - [facility] [id number] Renee Davenport Self 08/20/2022 - Unknown Clinical Notes Includes: Signed Clinical Notes starting from 08/03/2022 No Clinical Notes Recorded
--- OUTSIDE RECORDS SUMMARY | 2024-12-05 08:33 | XMS_ITS ---
Care Plan - [facility], [facility] Created on: December 05, 2024 Renee Davenport : 1985 Sex: Female Author Organization [facility], [facility] Address [address] [place] [address] Phone Care Team Providers Care Administrative Director Name Role Phone Elana Saez Unavailable [phone] Philip ODOM, Frank Unavailable Unavailable
--- OUTSIDE RECORDS SUMMARY | 2024-12-05 08:33 | XMS_ITS | Clinical Summary ---
Author Organization [facility] , [facility] Address [address] [place] [address] Phone Care Team Providers Care Special Skills Officer Name Role Phone Elana Saez Unavailable [phone] Philip ODOM, Frank Unavailable Unavailable Reason for Visit and Chief Complaint Epidural Steroid Injection Problems Includes: Problems addressed during this encounter and other active Problems All Visits Onset Date Resolved Date Provider Condition S tatus Neck Pain 05/17/2023 Jamaal Osorio MD Active Last Documented On 3 10:29AM ; [facility], [facility] Lower Back Pain 09/13/2021 LINDY LIVINGSTON PA-C Active Last Documented On 2 2:22PM ; [facility], [facility] Plan of Treatment No Plan of Treatment Recorded Assessments Includes: Assessments from this encounter No Assessments Recorded Medical Equipment - Implanted Devices Includes: Current Devices No Medical Equipment Recorded Medications Includes: Medications discussed during this encounter and other current Medications Current Medications (continue as prescribed) Pregabalin 50 MG Oral Capsule 05/09/2023 Provider: DORIS SAEZ Diagnosis: Last Documented On 3 11:41AM By Fatou Knig ; [facility], [facility] traMADol HCl 50 MG Oral Tablet 04/27/2023 Provider: DORIS SAEZ Diagnosis: Last Documented On 3 11:41AM By Fatou King ; [facility], [facility] Doxycycline Hyclate 100 MG Oral Capsule 04/25/2023 Pili segundoder: DORIS SAEZ Diagnosis: Last Documented On 3 11:41AM By Fatou King ; [facility], [facility] Symbicort 160-4.5 MCG/ACT Inhalation Aerosol 3 Provider: Kandi Busch NP Diagnosis: Last Documented On 3 11:40AM By Fatou King ; [facility], [facility] Albuterol Sulfate HFA 108 (9 0 Base) MCG/ACT Inhalation Aerosol Solution 04/06/2023 Provider: Diagnosis: Last Documented On 3 11:41AM By Fatou King ; [facility], [facility] Cyclobenzaprine HCl 10 MG Oral Tablet 03/13/2023 Pro vider: DORIS SAEZ Diagnosis: Last Documented On 3 11:41AM By Fatou King ; [facility], [facility] Medications Administered Includes: Administered Medications from this encounter No Administered Medications Recorded Results Includes: Results discussed during this encounter No Results Recorded For Specified Dates History of Present Illness Includes: History of Present Illness from this encounter No History of Present Illness Recorded Social History No Social History Recorded - Smoking Status Unknown Medical History Includes: Medical History addressed during this encounter No Medical History Recorded Family History Includes: Family History addressed during this encounter No Family History Recorded Review of Systems Includes: Review of Systems from this encounter No Review of Systems Recorded Mental Status Includes: Mental Status from this encounter No Mental Status Recorded Functional Status Includes: Functional Status from this encounter No Functional Status Recorded Physical Exam Includes: Physical Exam from this encounter No Physical Exam Recorded Allergies Includes: Active Allergies Substance Type Reaction Onset Date Resolved Date Statu s Amoxicillin Allergy 09/13/2021 Active Last Documented On 3 10:29AM ; [facility], [facility] Encounters Encounter Provider Location Date Check-In Time Check-Out Time Diagnosis Epidural Steroid Injection Frank Palacios MD 2 11:05AM 11:59PM Insurance Includes: Active Insurance Policies Plan Name Member ID Group # Subscriber Relationship Effect gustavo Dates 1 - [facility] [id number] Renee Gross Self 08/20/2022 - Unknown Clinical Notes Includes: Clinical Notes from this encounter No Clinical Notes Recorded
--- OUTSIDE RECORDS SUMMARY | 2024-12-05 08:33 | XMS_ITS | Clinical Summary ---
Author Organization [facility] , [facility] Address [address] [place] [address] Phone Care Team Providers Care Truck Leasing Manager Name Role Phone Elana Saez Unavailable [phone] Philip ODOM, Frank Unavailable Unavailable Reason for Visit and Chief Complaint The Chief Complaint is: lower back pain Problems Includes: Problems addressed during this encounter and other active Problems Current Visit Onset Date Resolved Date Provider Elijah siegel Status Lower Back Pain 09/13/2021 LINDY LIVINGSTON PA-C Active Last Documented On 2 2:22PM ; [facility], [facility] Past Visits Onset Date Resolved Date Provider Condition Status Neck Pain 05/17/2023 Jamaal Osorio MD Active Last Documented On 3 10:29AM ; [facility], [facility] Plan of Treatment She will continue with her exercise program. Any inflammatories as needed. As long as she has her symptoms controlled nothing else is needed. We will see her back on an as needed basis. 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 Does appear to be under good control at this point. - Last Documented On 04/12/2022 10:45AM ; [facility], [facility] Instructions Includes: Instructions from this encounter Instructions to patient No intervention and counseli ng on cessation of tobacco use Last Documented On 2 10:23AM ; [facility] Lose weight Last Documented On 2 10:22AM ; [facility] Medical Equipment - Implanted Devices Includes: Current Devices No Medical Equipment Recorded Medications Includes: Medications discussed during this encounter and other current Medications Current Medications (continue as prescribed) Pregabalin 50 MG Oral Capsule 05/09/2023 Provider: DORIS SAEZ Diagnosis: Last Documented On 3 11:41AM By Fatou King ; [facility] traMADol HCl 50 MG Oral Tablet 04/27/2023 Provider: DORIS SAEZ Diagnosis: Last Documented On 3 11:41AM By Fatou King ; [facility] Doxycycline Hyclate 100 MG Oral Capsule 04/25/2023 P rovider: DORIS SAEZ Diagnosis: Last Documented On 3 11:41AM By Fatou King ; [facility] Symbicort 160-4.5 MCG/ACT Inhalation Aerosol 3 Provider: Kandi Busch NP Diagnosis: Last Documented On 3 11:40AM By Fatou King ; [facility] Albuterol Sulfate HFA 108 (9 0 Base) MCG/ACT Inhalation Aerosol Solution 04/06/2023 Provider: Diagnosis: Last Documented On 3 11:41AM By Fatou King ; [facility] Cyclobenzaprine HCl 10 MG Oral Tablet 03/13/2023 Pro vider: DORIS SAEZ Diagnosis: Last Documented On 3 11:41AM By Fatou King ; [facility] Medications Administered Includes: Administered Medications from this encounter No Administered Medications Recorded Vital Signs Includes: Vital Signs from this encounter Vital Name 04/12/2022 10:31A Blood Pressure Sitting (mmHg) 123/77 Pulse Rate-Sitting (bpm) 92 Height (in) 64 Weight (lb) 150.4 Body Mass Index (kg/m2) 25.8 Body Surface Area (m2) 1.7 Note: rd Last Documented: On 04/12/2022 10:32A M ; [facility] Results Includes: Results discussed during this encounter No Results Recorded For Specified Dates History of Present Illness Includes: History of Present Illness from this encounter JIMBO Davenport is a 36 year old female. - Allergy list reviewed - Problem list reviewed - Medication reconciliation performed - Medication list reviewed - Yes, previous treatment. - History of Physical Therapy - History of Injections 09/20/2021-[facility] SI joint inj 11/25/2021 Bilat L4-5 L5-S1 Facet MBB Patient returns for follow-up regarding her lower back complaints. Pain has been participating with physical therapy and this seems to be making a big difference for her. She still has to modify her activities up. She still has some discomfort across her lower back and the hips in. For the most part she is doing considerably better. Seems to be functioning well. She is doing her regular activities. Social History Description Last Updated Not a current smoker. 05/17/2023 Last Documented On 2 10:22AM ; [facility], [facility] Not using alcohol 05/17/2023 Last Documented On 2 10:22AM ; [facility], [facility] Not using drugs 05/17/2023 Last Documented On 2 10:22AM ; [facility], [facility] Recent change in diet No pork 05/17/2023 Last Documented On 2 10:22AM ; [facility], [facility] No tobacco use 04/12/2022 Last Documented On 2 10:45AM ; [facility], [facility] Tobacco non-user 04/12/2022 Last Documented On 2 10:45AM ; [facility], [facility] No caffeine use 10/04/2021 Last Documented On 2 10:22AM ; [facility], [facility] Non-smoker 09/13/2021 Last Documented On 2 10:22AM ; [facility], [facility] Not exercising regularly 09/13/2021 Last Documented On 2 10:22AM ; [facility], [facility] Smoking Status Unknown Procedures and Surgical History Includes: Procedures from this encounter Procedures Code Diagnosis Performing Provider Service L ocation Service Date no intervention and counseling on cessation of tobacco use 4000F Last Documented On 2 10:23AM ; [facility], [facility] use of tobacco assessment performed 1000F Last Documented On 2 10:22AM ; [facility] no influenza immunization contraindicate d Last Documented On 2 10:22AM ; [facility] patient screened for future fall risk: no documentation of any fall with injury in past year 1100F Last Documented On 2 10:23AM ; [facility] an X-ray was performed 06/27/2021-[facility]spine xrays @ [facility] [id number] Last Documented On 2 10:34AM ; [facility] an MRI was performed [facility]22[facility]20[id number] Last Documented On 2 10:34AM ; [facility] Medical History Includes: Medical History addressed during this encounter Description Last Updated No recent immunization for flu 2 Last Documented On 2 10:22AM ; [facility] No recent immunization for pneumococcal pneumonia 10/04/2021 Last Documented On 2 10:22AM ; [facility] History of Anemia 09/13/2021 Last Documented On 2 10:22AM ; [facility] History of asthma 09/13/2021 Last Documented On 2 10:22AM ; [facility] Past Surgical History: Tubal 09/13/2021 Last Documented On 2 10:22AM ; [facility] Family History Includes: Family History addressed during this encounter Description Last Updated Diabetes mellitus 09/13/2021 Last Documented On 2 10:22AM ; [facility] Family history of cancer 09/13/2021 Last Documented On 2 10:22AM ; [facility] Stroke / Seizures 09/13/2021 Last Documented On 2 10:22AM ; [facility] Review of Systems Includes: Review of [...] Immunologic: Complaint of seasonal allergic reaction. reviewed 04/12/2022 Mental Status Includes: Mental Status from this encounter Description No anxiety Functional Status Includes: Functional Status from this encounter No Functional Status Recorded Physical Exam Includes: Physical Exam from this encounter Allergies Includes: Active Allergies Substance Type Reaction Onset Date Resolved Date Statu s Amoxicillin Allergy 09/13/2021 Active Last Documented On 3 10:29AM ; [facility], [facility] Encounters Encounter Provider Location Date Check-In Time Check- Out Time Diagnosis Follow Up LINDY LIVINGSTON PA-C [facility] 2 10:19AM 10:45AM Insurance Includes: Active Insurance Policies Plan Name Member ID Group # Subscriber Relationship Effect gustavo Dates 1 - [facility] [id number] Renee Davenport Self 08/20/2022 - Unknown Clinical Notes Includes: Clinical Notes from this encounter No Clinical Notes Recorded
--- OUTSIDE RECORDS SUMMARY | 2024-12-05 08:33 | XMS_ITS | Clinical Summary ---
Author Organization [facility] , [facility] Address [address] [place] [address] Phone Care Team Providers Care Research Scientist Name Role Phone Elana Saez Unavailable [phone] Philip ODOM, Frank Unavailable Unavailable Reason for Visit and Chief Complaint The Chief Complaint is: lower back pain Problems Includes: Problems addressed during this encounter and other active Problems Current Visit Onset Date Resolved Date Provider Kyleo n Status Lower Back Pain 09/13/2021 LINDY LIVINGSTON PA-C Active Last Documented On 2 2:22PM ; [facility], [facility] Past Visits Onset Date Resolved Date Provider Condition Status Neck Pain 05/17/2023 Jamaal Osorio MD Active Last Documented On 3 10:29AM ; [facility], [facility] Plan of Treatment We will have her try an epidural injection to see if this provides better relief. Beyond that there is really nothing more to offer. Do not identify any surgical needs. - Last Documented On 11/30/2021 9:32AM ; [facility], [facility] Instructions to patient Lose weight Last Documented On 2 9:14AM ; [facility], [facility] Assessments Includes: Assessments from this encounter Findings Patient said symptoms involving the lumbosacral area. Having pain seemingly thought to be related to her SI joints and/or facet joints. Unfortunately diagnostic injections failed to provide any substantial improvement of her symptoms even short-term. 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 - Last Documented On 11/30/2021 9:32AM ; [facility], [facility] Instructions Includes: Instructions from this encounter Instructions to patient Lose weight Last Documented On 2 9:14AM ; [facility] Medical Equipment - Implanted Devices Includes: Current Devices No Medical Equipment Recorded Medications Includes: Medications discussed during this encounter and other current Medications Current Medications (continue as prescribed) Pregabalin 50 MG Oral Capsule 05/09/2023 Provider: DORIS SAEZ Diagnosis: Last Documented On 3 11:41AM By Fatou King ; [facility] traMADol HCl 50 MG Oral Tablet 04/27/2023 Provider: DORIS SAEZ Diagnosis: Last Documented On 3 11:41AM By Fatou King ; [facility] Doxycycline Hyclate 100 MG Oral Capsule 04/25/2023 P sanyader: DORIS SAEZ Diagnosis: Last Documented On 3 11:41AM By Fatou King ; [facility] Symbicort 160-4.5 MCG/ACT Inhalation Aerosol 3 Provider: Kandi Busch NP Diagnosis: Last Documented On 3 11:40AM By Fatou King ; [facility] Albuterol Sulfate HFA 108 (9 0 Base) MCG/ACT Inhalation Aerosol Solution 04/06/2023 Provider: Diagnosis: Last Documented On 3 11:41AM By Fatou King ; [facility] Cyclobenzaprine HCl 10 MG Oral Tablet 03/13/2023 Pro vider: DORIS SAEZ Diagnosis: Last Documented On 3 11:41AM By Fatou King ; [facility], [facility] Medications Administered Includes: Administered Medications from this encounter No Administered Medications Recorded Vital Signs Includes: Vital Signs from this encounter Vital Name 11/30/2021 09:18A Blood Pressure Sitting L 127/81 Pulse Rate-Sitting (bpm) 97 Height (in) 64 Weight (lb) 156.7 Body Mass Index (kg/m2) 26.9 Body Surface Area (m2) 1.8 Note: HLizer Last Documented: On 11/30/2021 9:18AM ; [facility], [facility] Results Includes: Results discussed during this encounter No Results Recorded For Specified Dates History of Present Illness Includes: History of Present Illness from this encounter JIMBO Renee Davenport is a 36 year old female. - Allergy list reviewed - Problem list reviewed - Medication reconciliation performed - Medication list reviewed - Yes, previous treatment. - History of Injections 09/20/2021-[facility] SI joint inj 11/25/2021 Bilat L4-5 L5-S1 Facet MBB Patient returns still dealing with pain across her lower back and hips and occasionally down into the posterior left thigh. Patient's been treated over the past few months with physical therapy SI joint injections which did not provide any relief and recently facet blocks. At L4-5 and L5-S1 levels. Unfortunately this did not provide any relief even short-term. Patient is returns still having a lot of pain and discomfort in the lumbosacral area. No issues with bowel or bladder function. No fevers or chills. Social History Description Last Updated Not a current smoker. 05/17/2023 Last Documented On 2 9:14AM ; [facility] Not using alcohol 05/17/2023 Last Documented On 2 9:14AM ; [facility] Not using drugs 05/17/2023 Last Documented On 2 9:14AM ; [facility] Recent change in diet No pork 11/30/2021 Last Documented On 2 9:32AM ; [facility] No caffeine use 10/04/2021 Last Documented On 2 9:14AM ; [facility] Non-smoker 09/13/2021 Last Documented On 2 9:14AM ; [facility] Not exercising regularly 09/13/2021 Last Documented On 2 9:14AM ; [facility] Smoking Status Unknown Procedures and Surgical History Includes: Procedures from this encounter Procedures Code Diagnosis Performing Provider Service L ocation Service Date use of tobacco assessment performed 1000F Last Documented On 2 9:14AM ; [facility] no influenza immunization patient refuse d Last Documented On 2 9:14AM ; [facility] Medical History Includes: Medical History addressed during this encounter Description Last Updated No recent immunization for flu 2 Last Documented On 2 9:14AM ; [facility] No recent immunization for pneumococcal pneumonia 10/04/2021 Last Documented On 2 9:14AM ; [facility] History of Anemia 09/13/2021 Last Documented On 2 9:14AM ; [facility] History of asthma 09/13/2021 Last Documented On 2 9:14AM ; [facility] Past Surgical History: Tubal 09/13/2021 Last Documented On 2 9:14AM ; [facility] Family History Includes: Family History addressed during this encounter Description Last Updated Diabetes mellitus 09/13/2021 Last Documented On 2 9:14AM ; [facility] Family history of cancer 09/13/2021 Last Documented On 2 9:14AM ; [facility] Stroke / Seizures 09/13/2021 Last Documented On 2 9:14AM ; [facility] Review of Systems Includes: Review [...] Immunologic: Complaint of seasonal allergic reaction. reviewed 11/30/2021 Mental Status Includes: Mental Status from this encounter Description No anxiety Functional Status Includes: Functional Status from this encounter No Functional Status Recorded Physical Exam Includes: Physical Exam from this encounter Allergies Includes: Active Allergies Substance Type Reaction Onset Date Resolved Date Statu s Amoxicillin Allergy 09/13/2021 Active Last Documented On 3 10:29AM ; [facility], [facility] Encounters Encounter Provider Location Date Check-In Time Check- Out Time Diagnosis Follow Up LINDY LIVINGSTON PA-C [facility] 2 9:13AM 9:28AM Insurance Includes: Active Insurance Policies Plan Name Member ID Group # Subscriber Relationship Effect gustavo Dates 1 - [facility] [id number] Renee Gross Self 08/20/2022 - Unknown Clinical Notes Includes: Clinical Notes from this encounter No Clinical Notes Recorded
--- NOTE | 2024-12-05 09:00 | MR_ITS ---
FINAL REPORT CLINICAL HISTORY: Blurry vision left eye, headaches, dizziness 1 month COMPARISON: 04/04/2023 FINDINGS: Multi planar MR imaging was obtained through the brain without contrast. The midline structures appear intact. There is no evidence of Chiari malformation. On T2 and flair axial images the brain parenchyma is homogeneous. On diffusion-weighted images there is no evidence of restricted diffusion. There is extensive lobular mucoperiosteal thickening present in the maxillary and ethmoid air cells, and to a lesser extent the sphenoid sinus. The seventh and eighth nerve root complexes are intact. IMPRESSION: Essentially unremarkable nonenhanced brain MRI. Changes of chronic sinusitis. Reviewed, Interpreted and Dictated by Slade Tovra MD Transcribed by Cara Capellan Authenticated and [facility]
== END 2024-12-05 23:59 | disposition home or self-care (01) ==
LOC: RAD 08:30
PROVIDERS: PCP Nurse Practitioner Family; Visit Provider Nurse Practitioner Family
DX: R42 Dizziness and giddiness (principal); H53.8 Other visual disturbances; G43.909 Migraine, unspecified, not intractable, without status migrainosus
CPT/HCPCS: 70544; 70551